=== PATIENT | female | born 1955 | race African-American/Black ===

== ENCOUNTER 2018-02-09 12:13 | Emergency (ER) | payer MEDICAID ==
[~2018-02-09] VITALS: Ht 170.2 cm; Wt 91.0 kg
[2018-02-09] MEDS ORDERED: ALBU18HF2 IH (12:30)
[2018-02-09] MEDS ORDERED: MORPHINE SULFATE 10 MG/ML CPJ IM ONE (13:15)
[2018-02-09] MEDS ORDERED: ONDANSETRON 4MG ODT PO ONE (13:15)
[2018-02-09 14:57] VITALS: BP 168/65
== END 2018-02-09 15:13 | disposition left against medical advice (07) ==
LOC: ER 13:05
DX: M54.5 Low back pain (principal); J44.9 Chronic obstructive pulmonary disease, unspecified; E11.9 Type 2 diabetes mellitus without complications; I10 Essential (primary) hypertension; Z98.890 Other specified postprocedural states; Z88.0 Allergy status to penicillin
CPT/HCPCS: 96372; 99283; J2270; Q0162

== ENCOUNTER → 2019-10-02 | Outpatient (CLI) | payer MEDICARE, MEDICAID ==
[~2019-10-02] MED LIST: ALBU18HF2 IH; REGADENOSON 0.4 MG/5 ML IV ONE
== END | disposition home or self-care (01) ==
LOC: NM 07:24
PROVIDERS: ATTEND Internal Medicine Cardiovascular Disease
DX: Z01.818 Encounter for other preprocedural examination (principal); J44.9 Chronic obstructive pulmonary disease, unspecified; I10 Essential (primary) hypertension
CPT/HCPCS: 78452; 93017; A9500; J2785